=== PATIENT | male | born 1995 | race Caucasian/White ===

== ENCOUNTER 2017-08-09 11:18 | Emergency (ER) | payer BC ==
--- NOTE | 2017-08-09 11:35 | EDPHY ---
H & P Stated Complaint: L shoulder pain after fall snowboarding on Thursday Time Seen by Provider: 08/09/17 11:34 - Personal History Current Tetanus Diphtheria and Acellular Pertussis (TDAP): Yes - Medical/Surgical History Other PMH: neg - Social History Smoking Status: Current every day smoker Constitutional: Initial Vital Signs Temperature (C) 36.4 C 08/09/17 11:20 Heart Rate 68 08/09/17 11:20 Respiratory Rate 16 08/09/17 11:20 Blood Pressure 132/89 H 08/09/17 11:20 O2 Sat (%) 97 08/09/17 11:20 O2 Delivery Mode Room Air Allergies/Adverse Reactions: No Known Allergies Allergy (Verified 08/09/17 11:19) Home Medications: Medication Instructions Recorded Hydrocodone/APAP 5/325 [[place] 1 - 2 each PO Q4-6PRN PRN #20 tab 08/09/17 5/325] Medical Decision Making - Diagnostics Imaging Results: Imaging Impressions Shoulder X-Ray 08/09/17 11:42 Impression: Nothing acute identified. ED Course/Re-evaluation: CHIEF COMPLAINT: Shoulder pain HISTORY OF PRESENT ILLNESS: The patient presents with left shoulder pain after a fall while snowboarding. The patient stuck his arm out to catch his fall. He now has severe pain and limited range of motion. REVIEW OF SYSTEMS: A 10 point review of systems was performed and is negative with the exception of the elements mentioned in the history of present illness. PHYSICAL EXAM: HR, BP, O2 Sat, RR. Temp noted General Appearance: Alert, well hydrated, appropriate, and non-toxic appearing. Head: Atraumatic without scalp tenderness or obvious injury Eyes: Pupils equal, round, reactive to light and accommodation, EOMI, no trauma , no injection. Ears: Clear bilaterally, no perforation, normal landmarks Nose: Atraumatic, no rhinorrhea, clear. Throat: There is no erythema or exudates, no lesions, normal tonsils, mucus membranes moist. Neck: Supple, 2+ carotid upstroke, nontender, no lymphadenopathy. Respiratory: No retractions, no distress, no wheezes, and no accessory muscle use. Lungs are clear to auscultation bilaterally. Cardiovascular: Regular rate and rhythm, no murmurs, rubs, or gallops. Bilateral carotid, radial, dorsalis pedis, and posterior tibial pulses intact. Good capillary refill all extremities. Gastrointestinal: Abdomen is soft, nontender, non-distended, no masses, no rebound, no guarding, no peritoneal signs. Musculoskeletal: Limited ROM, pain in AC joint both to palpation and movement. No other obvious injury. Neurological: Alert, appropriate, and interactive. The patient has normal DTRs and non-focal cranial nerves, motor, sensory, and cerebellar exam. Skin: No rashes, good turgor, no nodules on palpation. Past medical history: Denies. Past surgical history: Denies. Family history: Noncontributory. Social history: From [place]. DIFFERENTIAL DIAGNOSIS: The differential diagnosis for the patient's trauma included but was not limited to AC separation, shoulder dislocation, intracranial injury, long bone and pelvic bone fractures, spinal injury, intra- abdominal injury, and intra-thoracic injury. MEDICAL DECISION MAKING: Patient presents with left should pain after a fall while snowboarding. The patient has pain in alta AC joint both to palpation and movement. I am unable to test full range of motion of his shoulder secondary to pain. He has no other complains of injury. Plan for shoulder x-ray. I viewed the patient's shoulder x-ray: There appears to be a Grade I AC separation with 1/2 stepoff with possible rotator cuff injury. I referred the patient to orthopedic surgery and recommend he follow up. The patient was discharged home in a sling. - Data Points Medications Given: Discontinued Medications Ibuprofen (Motrin) 800 mg PO EDNOW ONE Stop: 08/09/17 11:44 Last Admin: 08/09/17 11:44 Dose: 800 mg Departure - Departure Disposition: Home, Routine, Self-Care Clinical Impression: AC separation Qualifiers: Encounter type: initial encounter Laterality: left Qualified Code(s): S43.102A - Unspecified dislocation of left acromioclavicular joint, initial encounter Condition: Good Instructions: Acromioclavicular Separation (ED) Additional Instructions: You may have a possible acromioclavicular separation (Grade I). I recommend 600mg Ibuprofen every 6-8 hours as needed for pain. Take Hydrocodone as directed for severe pain. Wear the sling as needed and move the shoulder as tolerated. You have been referred to an software test specialist below. Please call to arrange follow up. Referrals: Colt Sotomayor MD [Medical Doctor] - As per Instructions (Orthopedic surgeon) Prescriptions: Hydrocodone/APAP 5/325 [[place] 5/325] 1 - 2 each PO Q4-6PRN PRN #20 tab PRN Reason: Pain, Moderate Report Scribed for: Dutch Joyce Report Scribed by: Kindra Dial Date of Report: 08/09/17 Time of Report: 11:45
[2017-08-09] MEDS ORDERED: IBUPROFEN 800 MG TAB PO ONE ×2 (11:42→11:43)
[2017-08-09 12:28] VITALS: BP 125/87; PULSE 67; RESP 18; TEMP 98.2; O2SAT 95
== END 2017-08-09 12:28 | disposition home or self-care (01) ==
DX: S43.102A Unspecified dislocation of left acromioclavicular joint, initial encounter (principal); F17.200 Nicotine dependence, unspecified, uncomplicated; V00.311A Fall from snowboard, initial encounter; Y99.8 Other external cause status; Y93.23 Activity, snow (alpine) (downhill) skiing, snowboarding, sledding, tobogganing and snow tubing
CPT/HCPCS: A4565

== ENCOUNTER 2018-02-22 11:25 | Emergency (ER) | payer BC ==
--- NOTE | 2018-02-22 11:50 | EDPHY ---
H & P Stated Complaint: ? pilonidal cyst Time Seen by Provider: 02/22/18 11:34 HPI/ROS: HPI: This is a 22-year-old male who presents with Chief Complaint: Tailbone pain Location: Tailbone Quality: Pain Duration: 24 hr Signs and Symptoms: no fever, no nausea, no vomiting, no hematemesis, no blood in stool, no abdominal bloating, no diarrhea, no back pain, no urinary symptoms , no testicular/groin pain, no indigestion, no chest pain, no shortness of breath Timing: Rapid onset, acute Severity: Moderate Context: Patient reports that he woke up yesterday with tailbone pain that is increased with sitting or touching the area. He reports that he is having normal daily bowel movements. He denies any blood in his stool or hemorrhoids. He has no urinary symptoms, testicular groin pain. He denies any rectal trauma or insertion of objects into his rectum. Modifying Factors: None Comment: ROS: see HPI Constitutional: No fever, no chills, no weight loss Eyes: No blurred vision Respiratory: No shortness of breath, no cough Cardiovascular: No chest pain, no palpitations Gastrointestinal: No nausea, no vomiting, no diarrhea, no hematemesis, no blood in stool Genitourinary: No dysuria, no blood in urine Extremities: No myalgias, no edema Neurologic: No weakness, no numbness Skin: No rashes, no petechiae Hematologic: No bruising, no bleeding MEDICAL/SURGICAL/SOCIAL HISTORY: Medical history: Bilateral keratitis Surgical history: Appendectomy Social history: Family history noncontributory. CONSTITUTIONAL: Nontoxic-appearing young adult white male awake and alert, no obvious distress HEENT: Atraumatic and normocephalic, PERRL, EOMI. Nares patent; no rhinorrhea; no nasal mucosal edema. Tympanic membranes clear. Oropharynx clear, no exudate and moist pink mucosa. Airway patent. No lymphadenopathy. No meningismus. Cardiovascular: Normal S1/S2, regular rate, regular rhythm, without murmur rub or gallop. PULMONARY/CHEST: Symmetrical and nontender. Clear to auscultation bilaterally. Good air movement. No accessory muscle usage. ABDOMEN: Soft, nondistended, nontender, no rebound, no guarding, no peritoneal signs, no masses or organomegaly. No CVAT. RECTAL: Sinus tract midline in the upper part of the cleft with yellowish malodorous discharge palpation; no communication with anal rectum; Good sphincter tone, light brown stool in vault, no external hemorrhoids, no fissures, no palpable masses, guaiac negative EXTREMITIES: 2/2 pulses, strength 5/5, no deformities, no clubbing, no cyanosis or edema. NEUROLOGICAL: no focal neuro deficits. GCS 15. SKIN: Warm and dry, no erythema. no rash. Good capillary refill. Source: Patient Exam Limitations: No limitations - Personal History Current Tetanus Diphtheria and Acellular Pertussis (TDAP): Yes - Medical/Surgical History Hx Asthma: No Hx Chronic Respiratory Disease: No Hx Diabetes: No Hx Cardiac Disease: No Hx Renal Disease: No Hx Cirrhosis: No Hx Alcoholism: No Hx HIV/AIDS: No Hx Splenectomy or Spleen Trauma: No Other PMH: appy/keratitis bilat eyes - Social History Smoking Status: Former smoker Constitutional: Initial Vital Signs Temperature (C) 36.5 C 02/22/18 11:31 Heart Rate 81 02/22/18 11:31 Respiratory Rate 16 02/22/18 11:31 Blood Pressure 129/73 H 02/22/18 11:31 O2 Sat (%) 99 02/22/18 11:31 O2 Delivery Mode Room Air Allergies/Adverse Reactions: No Known Allergies Allergy (Verified 02/22/18 11:30) Home Medications: Medication Instructions Recorded Naproxen 500 mg PO Q12 #20 tablet 02/22/18 Medical Decision Making Procedures: Procedure: Pilonidal cyst drainage. 6 mL of 1% lidocaine were was used for local anesthesia. The patient's abscess was located on the midline above the hubert cleft. I obtained verbal consent from the patient to drain the abscess who was informed about the possibility of bleeding and pain. The abscess was incised with #11 scalpel and a 7 mL amount of purulent drainage was expressed. I irrigated the wound and did not place packing. The patient tolerated the procedure well. The procedure was performed by myself. ED Course/Re-evaluation: Pilonidal cyst drained at bedside. No abscess or surrounding cellulitis appreciated. Antibiotics not indicated. Advised patient to perform Sitz past, good personal hygiene, General surgery follow-up to discuss excision. Guaiac negative. This patient was seen under the supervision of my secondary supervising physician. I evaluated care for this patient independently. Discussed this patient with Dr. Joyce who did not see the patient. Differential Diagnosis: Differential diagnosis includes but is not limited to anal fissure, anal fistula , anal malignancy, anorectal abscess, pilonidal cyst, proctitis, rectal foreign body. - Data Points Laboratory Results: 02/22/18 11:45 Stool Occult Bld Scrn NEGATIVE (NEGATIVE) Departure - Departure Disposition: Home, Routine, Self-Care Clinical Impression: Pilonidal cyst without abscess Condition: Good Instructions: Pilonidal Cyst (ED), Sitz Bath (DC), Pilonidal Cyst Excision (DC) Additional Instructions: Please use a donut to sit on to distribute away and prevent tailbone pain. Perform Sitz past 2-3 times per day for the next several days. Shave the hair in the surrounding area. Wash the site twice a day with soap and water. Pat dry. Follow-up with General surgery to talk about pilonidal cyst excision. Referrals: Waldemar Ames MD [Medical Doctor] - As per Instructions Prescriptions: Naproxen 500 mg PO Q12 #20 tablet
[2018-02-22 12:08] VITALS: BP 135/74
== END 2018-02-22 12:07 | disposition home or self-care (01) ==
PROC: 0H98XZZ Drainage of Buttock Skin, External Approach (ICD-10-PCS; principal; 2018-02-22)
DX: L05.91 Pilonidal cyst without abscess (principal); Z87.891 Personal history of nicotine dependence

== ENCOUNTER 2018-12-10 12:13 | Emergency (ER) | payer BC ==
--- NOTE | 2018-12-10 12:34 | EDPHY ---
H & P Stated Complaint: left foot injury playing basketball yesterday Time Seen by Provider: 12/10/18 12:24 HPI/ROS: HPI: This is a 23-year-old male who presents with Chief Complaint: Left heel injury playing basketball yesterday Location: Left heel Quality: Injury Duration: Yesterday afternoon Signs and Symptoms: No bleeding, no radiation, no numbness, no weakness, no tingling, no incontinence, no decreased range of motion, + swelling, + pain, no fever Timing: Acute, worsening Severity: [id number] Context: Patient is student at [employer] presents with complaints of accidentally hurting his left heel while playing basketball yesterday afternoon. He reports that he jumped up and landed directly on his left heel. He woke up this morning with swelling in his left heel that radiated up into his left ankle. He denies any actual left ankle pain or swelling. Denies radiation, weakness, decreased range of motion. Wearing flip- flops. Pain is increased with weight-bearing. Denies any skin color changes. Modifying Factors: No [id number] medications or ice applied. Comment: ROS: A comprehensive 10 system review of systems is otherwise negative aside from elements mentioned in the history of present illness. MEDICAL/SURGICAL/SOCIAL HISTORY: Medical history: Generally healthy. Does not take any regular medications. Surgical history: Denies Social history: Originally from [place]. Nontobacco user. CONSTITUTIONAL: Polite and cooperative young adult white male, awake and alert , no obvious distress HEENT: Atraumatic and normocephalic. NECK: supple, no midline tenderness Cardiovascular: Normal S1/S2, regular rate, regular rhythm, without murmur rub or gallop. PULMONARY/CHEST: Symmetrical and nontender. Clear to auscultation bilaterally. Good air movement. No accessory muscle usage. ABDOMEN: Soft, nondistended, nontender. EXTREMITIES: 2/2 pulses, strength 5/5, left heel shows mild swelling and ecchymosis; tenderness to palpation over the generalized heel area; left Ankle: Plantar flexion to 50, dorsiflexion to 20. Foot inversion to 35 degree. No tenderness/swelling Anterior talofibular ligament. No tenderness/swelling Calcaneofibular ligament, no tenderness/swelling posterior talofibular ligament , no tenderness/swelling posterior inferior tibiofibular ligament. Achilles tendon intact. DIP/PIP/MCP flexion/extension intact with good light touch sensation. no deformities, no clubbing, no cyanosis or edema. NEUROLOGICAL: no focal neuro deficits. GCS 15. Light touch sensation intact. SKIN: Warm and dry, no erythema. no rash. Good capillary refill. Source: Patient Exam Limitations: No limitations - Medical/Surgical History Hx Asthma: No Hx Chronic Respiratory Disease: No Hx Diabetes: No Hx Cardiac Disease: No Hx Renal Disease: No Hx Cirrhosis: No Hx Alcoholism: No Hx HIV/AIDS: No Hx Splenectomy or Spleen Trauma: No Other PMH: appy/keratitis bilat eyes - Social History Smoking Status: Former smoker Constitutional: Initial Vital Signs Temperature (C) 36.5 C 12/10/18 12:17 Heart Rate 88 12/10/18 12:17 Respiratory Rate 18 12/10/18 12:17 Blood Pressure 137/103 H 12/10/18 12:17 O2 Sat (%) 98 12/10/18 12:17 O2 Delivery Mode Room Air Allergies/Adverse Reactions: No Known Allergies Allergy (Verified 12/10/18 12:15) Home Medications: Medication Instructions Recorded NK [No Known Home Meds] 12/10/18 Medical Decision Making - Diagnostics Imaging Results: Imaging Impressions Foot X-Ray 12/10/18 12:22 Impression: No acute osseous findings. Calcaneus X-Ray 12/10/18 12:25 Impression: No acute findings. Procedures: Procedure: Splint placement. A left walking boot and crutches were applied. After application of the splint I returned and re-examined the patient. The splint was adequately immobilizing the joint and distal to the splint the patient's circulation and sensation was intact. ED Course/Re-evaluation: Vital signs reviewed and show mildly elevated blood pressure. Left foot x-ray and left calcaneal x-ray ordered and my read via PAC shows no fracture, dislocation but does show soft tissue swelling along the heel region. Placed in walking boot, crutches, toe-touch weight-bearing status, orthopedic follow-up as needed No signs of neurovascular compromise/tenting of skin/compartment syndrome/ extremities and joints examined above and below area of concern and are neurovascularly intact. This patient was seen under the supervision of my primary supervising physician. I evaluated and cared for this patient independently. Differential Diagnosis: Differential diagnosis includes but is not limited to calcaneal fracture, tibia fracture, fibula fracture, metatarsal fracture, LisFranc fracture, achilles tendon rupture, sprain, contusion. Departure - Departure Disposition: Home, Routine, Self-Care Clinical Impression: Contusion of left heel Qualifiers: Encounter type: initial encounter Qualified Code(s): S90.32XA - Contusion of left foot, initial encounter Condition: Good Instructions: Crutch Instructions (ED), Foot Contusion (ED) Additional Instructions: Wear the walking boot while out of bed until pain free or seen by Orthopedics. Use crutches to aid ambulation. Start with toe-touch weight-bearing status. Take Tylenol 650 mg every 4 hours and/or Ibuprofen 600 mg every 8 hours with food as needed for pain. Apply ice for 30 minutes at a time; 2-3 times per day for the next 1-2 days. Follow up with Orthopedics in 7-10 days if symptoms persist at which time they will evaluate and recommend with you if conservative management versus MRI is indicated. The x-rays obtained in the emergency department today demonstrate no evidence of an obvious fracture. Sometimes fractures are not obvious on the initial set of x-rays performed in the ED. For this reason, you should have repeat x-rays performed in 7-10 days if you are having any pain exclude the possibility of an occult fracture. Referrals: Delia De La Torre MD [Medical Doctor] - As per Instructions
[2018-12-10 14:03] VITALS: BP 131/86
== END 2018-12-10 14:03 | disposition home or self-care (01) ==
DX: S90.32XA Contusion of left foot, initial encounter (principal); W22.8XXA Striking against or struck by other objects, initial encounter; Y93.67 Activity, basketball
CPT/HCPCS: L4386